=== PATIENT | female | born 1960 | race Caucasian/White ===

== ENCOUNTER 2022-05-05 08:53 | Day surgery (SDC) | payer OTHER ==
[2022-05-05] MEDS ORDERED: Lactated Ringers 1,000 ML IV SCH (09:45)
[2022-05-05] MEDS ORDERED: Cyanocobalamin (Vitamin B12) 1,000 MCG/ML SDV IM ONE (10:00)
[2022-05-05] MEDS ORDERED: Propofol 200 MG/20 ML SDV ONE (10:06)
[2022-05-05] MEDS ORDERED: Midazolam 1 MG/ML 2 ML SDV ONE (10:06)
[2022-05-05] MEDS ORDERED: fentaNYL 100 MCG/2 ML SDV ONE (10:06)
[2022-05-05] MEDS ORDERED: Glycopyrrolate 0.2 MG/ML 2 ML SDV IVPUSH ONE (10:30)
[2022-05-05] MEDS ORDERED: MVI, Adult with Vitamin K 10 ML, Thiamine 200 MG, Chromium/Copper/Mang/Selen/Zn 1 ML in... IV SCH ×4 (10:45)
[2022-05-05] MEDS ORDERED: Fluconazole/Normal Saline 400 MG in Premix Bag 1 BAG IV ONE (12:30)
== END 2022-05-05 14:42 | disposition home or self-care (01) ==
LOC: JP.SDS 08:53
PROVIDERS: ATTEND Surgery
DX: R13.10 Dysphagia, unspecified (principal); Z98.84 Bariatric surgery status
CPT/HCPCS: J1450; J2250; J2704; J3010; J3411; J3420; J3490; J7120